=== PATIENT | female | born 1955 | race Caucasian/White ===

== ENCOUNTER 2017-06-10 10:08 | Outpatient (CLI) | payer BC ==
[~2017-06-10 10:08] MED LIST: METO-290 PO; PRO40 PO
== END 2017-06-10 19:46 | disposition home or self-care (01) ==
LOC: SMA 10:08
PROVIDERS: ATTEND General Practice
DX: Z12.31 Encounter for screening mammogram for malignant neoplasm of breast (principal)
CPT/HCPCS: G0202

== ENCOUNTER 2018-06-16 08:34 | Outpatient (CLI) | payer BC | END 2018-06-16 20:00 | disposition home or self-care (01) | LOC: SMA 08:34 | PROVIDERS: ATTEND General Practice | DX: Z12.31 Encounter for screening mammogram for malignant neoplasm of breast (principal) | CPT/HCPCS: 77067 ==